=== PATIENT | female | born 1985 | race Caucasian/White ===

== ENCOUNTER 2017-05-31 21:48 | Emergency (ER) | payer BC ==
[2017-05-31 22:22] VITALS: BP 113/78
--- NOTE | 2017-05-31 22:44 | ED Physician Documentation ---
Upper Respiratory Symptoms - HISTORIAN Historian: patient, friend - HPI Stated Complaint: Cough and sinus congestion Chief Complaint: Cough/ Upper Respiratory Additional Information: a cough congestion ache all over no flu vaccine lethargy slight sore throat feeling sinus congestion approx 1 week occ lo glr fever chills Onset: days ago (7-10) Duration: constant, intermittent episodes Context: denies: recent foreign travel, insect bite(s), tick(s) Severity: moderate Associated Symptoms: fever, chills, sweating, runny nose, sinus pain Worsened by Deep Breath: Yes Further Comments: yes - ROS CONST/EYES: weakness. denies: eye redness, eye itching CVS/RESP: none LYMPH: denies: leg swelling, rash, swollen glands, ankle swelling GI/: none NEURO/PSYCH: denies: fainting, dizziness, confusion MS/SKIN: joint pain, muscle aches. denies: rash - PAST HX Lung Disease: none, other (occ sinusitis) PE Risk Factors: none Other History: denies: cancer chemo, cancer radiation tx, cardiac disease Surgeries/Procedures: none Immunizations: denies: influenza, pneumovax Allergies/Adverse Reactions: Allergies Allergy/AdvReac Type Severity Reaction Status Date / Time Latex, Natural Rubber AdvReac Rash Verified 05/31/17 22:22 Home Medications: Ambulatory Orders Medication Instructions Recorded diphenhydrAMINE HCL [Benadryl] 25 mg PO HS 05/31/17 - SOCIAL HX Smoking History: non-smoker Alcohol Use: none Drug Use: none - FAMILY HX Family History: no significant history, other (fiance has same symptoms acq 2-3 daYS AFTER HER SYMPTOMS) - VITAL SIGNS Vital Signs: Vital Signs Temp Pulse Resp BP Pulse Ox 98.6 F 105 H 18 113/78 97 05/31/17 22:05 05/31/17 22:05 05/31/17 22:05 05/31/17 22:05 05/31/17 22:05 - REVIEWED ASSESSMENTS Nursing Assessment Reviewed: Yes Vitals Reviewed: Yes ED Results Lab/Radiology - Orders Orders: ED Orders Category Date Time Status INFLUENZA A&B Stat Lab 05/31/17 22:15 Uncollected Upper Respiratory Symptoms - EXAM General Appearance: mild distress EENT: eyes nml inspection, pain over sinuses (VERY MINIMAL), frontal, maxillary. No: TM erythema, TM dullness (R), TM dullness (L), loss of TM landmarks (R), loss of TM landmarks (L), purulent nasal drainage, pharyngeal erythema Neck: normal inspection, thyroid normal, supple Respiratory: no resp. distress, breath sounds nml Abdomen: non-tender, no distention CVS: reg rate & rhythm, heart sounds normal Skin: color nml, no rash, warm,dry. No: cyanosis, diaphoresis, pallor Extremities: non-tender, normal range of motion, no edema Neuro/Psych: oriented x3, mood/affect nml Discharge Clincal Impression: Viral respiratory infection, SUSPECT INFLUENZA B, HX RECURRENT SINUSITIS Referrals: Primary Doctor,No [Primary Care Provider] - 2 Days Comments: COLD MARIAN CLARITIN REST BAL NUT INC WATER REST Condition: Good Disposition: 01 HOME, SELF-CARE Decision to Admit: NO Decision Time: 22:50
== END 2017-05-31 22:40 | disposition home or self-care (01) ==
LOC: ED 21:48
DX: J98.8 Other specified respiratory disorders (principal)
CPT/HCPCS: 87400; 99283